=== PATIENT | female | born 1960 | race Caucasian/White ===

== ENCOUNTER → 2016-10-13 | Outpatient (CLI) | payer BC, OTHER ==
--- NOTE | 2016-10-13 11:53 | REP ---
LUMBAR SPINE, FIVE VIEWS: HISTORY: Back pain. There is no acute fracture or subluxation. The L3-4 and L4-5 intervertebral discs are decreased in height consistent with disc degeneration. Osteophytes are present at L4 and L5. The facet joints are normal in appearance. There is spina bifida occulta of L5. IMPRESSION: Degenerative change as described above. Signed by Cr Royal MD 10/13/2016 12:05 P
== END ==
LOC: M WUC 11:23
PROVIDERS: ATTEND Internal Medicine
DX: M51.36 Other intervertebral disc degeneration, lumbar region (principal); M25.78 Osteophyte, vertebrae; Q76.0 Spina bifida occulta

== ENCOUNTER → 2017-02-15 | Outpatient (REF) | payer OTHER | LOC: M SFHCWAGY 12:19 | PROVIDERS: ATTEND Nurse Practitioner Women's Health | DX: Z12.4 Encounter for screening for malignant neoplasm of cervix (principal) ==

== ENCOUNTER → 2017-02-16 | Outpatient (CLI) | payer BC, OTHER ==
--- NOTE | 2017-02-16 10:56 | REP ---
Digital diagnostic bilateral mammography with CAD and focused right breast sonography: History: Right breast lump at 4 o'clock position times 2 weeks. Comparison mammography is reviewed from January 26, 2016 and November 27, 2015. Mammographic findings: A skin marker is affixed to the skin at the site of the palpable lump on the right. Routine views of the right breast are augmented by magnified focal spot compression CC, MLO and true ML views. Routine views of the left breast were obtained today. The breast parenchyma is heterogeneously dense in a pattern which inhibits the sensitivity of mammography as before. No dominant density is seen at the site of the palpable lump or elsewhere on either side mammographically and there are normal appearing lymph nodes bilaterally again noted. Sonographic findings: The right breast is scanned in the area of the palpable lump at approximate 7 o'clock. There are grouping of cysts seen here, the largest of which measures 8 x 6 x 4 mm. This is located 1.7 cm from the nipple and is felt to correspond to the palpable abnormality. No sonographically suspicious abnormality is seen. Impression: BI-RADS category 2 benign bilateral breast imaging. 8 mm cyst noted at the site of the palpable lump on the right. This negative report should not dissuade one from biopsy of a palpable lump depending on its clinical characteristics. Clinical follow-up is advised. This mammogram was interpreted with the aid of an FDA-approved computer-aided detection system. The patient states she/he had a clinical breast exam in February 2017. The patient letter being requested is M2. Signed by Simeon Meek MD 02/16/2017 11:25 A
== END ==
LOC: M RAD 09:36
PROVIDERS: ATTEND Nurse Practitioner Women's Health
DX: N63.0 Unspecified lump in unspecified breast (principal)

== ENCOUNTER → 2018-04-26 | Outpatient (CLI) | payer BC | LOC: M WHC 10:18 | DX: Z12.31 Encounter for screening mammogram for malignant neoplasm of breast (principal); Z78.0 Asymptomatic menopausal state; Z92.89 Personal history of other medical treatment; Z92.23 Personal history of estrogen therapy; Z92.29 Personal history of other drug therapy | CPT/HCPCS: 77067 ==

== ENCOUNTER → 2019-04-29 | Outpatient (CLI) | payer BC, OTHER ==
--- NOTE | 2019-04-29 11:32 | REPMRS ---
Patient History The patient states she had a clinical breast exam in 2018. No known family history of cancer. Benign cyst aspiration of the right breast, 2013. Taking estrogen for 20 years. Taking progesterone for 20 years. Digital Woman Screen Mammo: April 29, 2019 - Exam #: [id number] Bilateral CC and MLO view(s) were taken. Technologist: Bridgett Dobbins, Technologist Prior study comparison: April 26, 2018, bilateral digital woman screen mammo performed at [facility]. February 16, 2017, digital mammo diagnostic bilateral, performed at [facility]. January 26, 2016, digital woman screen mammo performed at [facility]. FINDINGS: The breast tissue is heterogeneously dense. This may lower the sensitivity of mammography. There is a moderate amount of heterogeneously dense fibroglandular tissue which is fairly symmetric. There is no interval development of dominant mass, architectural distortion, or grouped microcalcification typical of malignancy. There has been no change in the appearance of the mammogram from the prior studies. 3-D tomosynthesis shows no additional findings. Assessment: BI-RADS/ACR category 1 mammogram. Negative Mammogram. Recommendation Routine screening mammogram of both breasts in 1 year (for women over age 40). This patient's Lifetime Breast Cancer RIsk is estimated at 7.1 %. This mammogram was interpreted with the aid of an FDA-approved computer-aided dectection system. Electronically Signed By: Miguel Meek MD 04/29/19 [id number]
== END ==
LOC: M WHC 10:18
PROVIDERS: ATTEND Nurse Practitioner Women's Health
DX: Z12.31 Encounter for screening mammogram for malignant neoplasm of breast (principal); Z79.899 Other long term (current) drug therapy

== ENCOUNTER → 2020-06-12 | Outpatient (CLI) | payer BC ==
--- NOTE | 2020-06-12 11:49 | REPMRS ---
Patient History The patient states she had a clinical breast exam in May 2020. No known family history of cancer. Benign cyst aspiration of the right breast, 2013. Taking estrogen for 20 years. Taking progesterone for 20 years. Digital Woman Screen Mammo: June 12, 2020 - Exam #: [id number] Bilateral CC and MLO view(s) were taken. Technologist: Cathi Nogueira, Technologist Prior study comparison: April 29, 2019, bilateral digital woman screen mammo performed at [facility]. April 26, 2018, bilateral digital woman screen mammo performed at [facility]. February 16, 2017, digital mammo diagnostic bilateral, performed at [facility]. FINDINGS: The breast tissue is extremely dense which could obscure a lesion on mammography. The [place] volumetric breast density category is: D. There is an extremely dense symmetrical pattern of residual fibroglandular tissue. There has been no change in the appearance of the mammogram from the previous studies. There is no interval development of dominant mass, archetectural distortion, or grouped microcalcifications suggestive of malignancy. 3-D tomosynthesis shows no additional findings. Assessment: BI-RADS/ACR category 1 mammogram. Negative Mammogram. Recommendation Routine screening mammogram of both breasts in 1 year (for women over age 40). This patient's [facility] Lifetime Breast Cancer RIsk is estimated at 6.9 %. This mammogram was interpreted with the aid of an FDA-approved computer-aided dectection system. Electronically Signed By: Miguel Meek MD 06/12/20 [id number]
== END ==
LOC: M WHC 09:44
PROVIDERS: ATTEND Nurse Practitioner Women's Health
DX: Z12.31 Encounter for screening mammogram for malignant neoplasm of breast (principal); Z79.899 Other long term (current) drug therapy

== ENCOUNTER → 2020-06-12 | Outpatient (REF) | payer OTHER | LOC: M SFHCWAGY 13:37 | PROVIDERS: ATTEND Nurse Practitioner Women's Health | DX: Z12.4 Encounter for screening for malignant neoplasm of cervix (principal); Z01.419 Encounter for gynecological examination (general) (routine) without abnormal findings ==

== ENCOUNTER → 2020-10-23 | Outpatient (REF) | payer OTHER ==
[2020-10-26 15:30] LABS: ANTINUCLEAR ANTIBODIES DIRECT Negative (Negative)
== END ==
LOC: M LAB REF 11:43
PROVIDERS: ATTEND Internal Medicine
DX: M15.9 Polyosteoarthritis, unspecified (principal)

== ENCOUNTER → 2021-02-26 | Outpatient (REF) | payer OTHER ==
[2021-02-27 17:07] LABS: Lyme Disease IgG/IgM Antibodie <0.91 ISR (0.00-0.90); Lyme Disease IgM Ab Quantitati <0.80 index (0.00-0.79)
== END ==
LOC: M LAB REF 11:42
PROVIDERS: ATTEND Internal Medicine
DX: Z11.59 Encounter for screening for other viral diseases (principal); W57.XXXA Bitten or stung by nonvenomous insect and other nonvenomous arthropods, initial encounter

== ENCOUNTER → 2021-09-24 | Outpatient (CLI) | payer BC, OTHER | LOC: M WHC 11:56 | PROVIDERS: ATTEND Nurse Practitioner | DX: Z12.31 Encounter for screening mammogram for malignant neoplasm of breast (principal) ==

== ENCOUNTER → 2022-09-26 | Outpatient (CLI) | payer BC, OTHER | LOC: M WHC 11:02 | PROVIDERS: ATTEND Nurse Practitioner | DX: Z12.31 Encounter for screening mammogram for malignant neoplasm of breast (principal) ==

== ENCOUNTER → 2023-09-28 | Outpatient (CLI) | payer BC | LOC: M WHC 12:35 | PROVIDERS: ATTEND Nurse Practitioner | DX: Z12.31 Encounter for screening mammogram for malignant neoplasm of breast (principal); Z13.820 Encounter for screening for osteoporosis; Z78.0 Asymptomatic menopausal state; M85.851 Other specified disorders of bone density and structure, right thigh; M85.852 Other specified disorders of bone density and structure, left thigh; N63.25 Unspecified lump in the left breast, overlapping quadrants ==

== ENCOUNTER → 2023-10-17 | Outpatient (CLI) | payer BC | LOC: M WHC 13:26 | PROVIDERS: ATTEND Nurse Practitioner | DX: R92.8 Other abnormal and inconclusive findings on diagnostic imaging of breast (principal); N63.23 Unspecified lump in the left breast, lower outer quadrant | CPT/HCPCS: 77065; G0279 ==

== ENCOUNTER → 2023-11-10 | Outpatient (CLI) | payer BC | LOC: M WUC 08:46 | PROVIDERS: ATTEND Nurse Practitioner Family | DX: M54.6 Pain in thoracic spine (principal); W01.10XA Fall on same level from slipping, tripping and stumbling with subsequent striking against unspecified object, initial encounter ==

== ENCOUNTER 2024-01-11 09:48 | Day surgery (SDC) | payer BC ==
[~2024-01-11] VITALS: Ht 154.9 cm; Wt 46.6 kg
[~2024-01-11 09:48] MED LIST: CALCCAP4 PO; COMB0.9D TD; ECOT81TA5 PO; MELO15TA28 PO; SIMV20TA22 PO
[2024-01-11] MEDS: NS 1,000 ML IV ONE (10:18)
[2024-01-11 11:25] VITALS: BP 142/80; TEMP 97.8; O2SAT 100
== END 2024-01-11 11:39 | disposition home or self-care (01) ==
LOC: M OPP 09:48
PROVIDERS: ATTEND Surgery
DX: K57.30 Diverticulosis of large intestine without perforation or abscess without bleeding (principal); R19.4 Change in bowel habit; Z79.02 Long term (current) use of antithrombotics/antiplatelets; Z79.1 Long term (current) use of non-steroidal anti-inflammatories (NSAID); Z79.82 Long term (current) use of aspirin; Z88.1 Allergy status to other antibiotic agents